=== PATIENT | female | born 1995 | race Caucasian/White ===

== ENCOUNTER 2021-05-07 17:59 | Emergency (ER) | payer MEDICAID ==
--- NOTE | 2021-05-07 20:07 | XR ---
EXAMINATION TYPE: XR foot complete RT DATE OF EXAM: 05/07/2021 COMPARISON: NONE HISTORY: Stepped on a nail. Pain TECHNIQUE: 3 views FINDINGS: Metatarsals are intact. I see no fracture nor dislocation. Joint spaces are normal. There i s no sign of a foreign body. IMPRESSION: No fracture. No sign of a metallic foreign body.
[2021-05-07] MEDS ORDERED: AMOXIC-POT CLAV 875-125MG 1 EACH TAB PO STA (20:35)
--- NOTE | 2021-05-07 20:43 | ED ---
General Adult HPI - General Chief complaint: Extremity Injury, Lower Stated complaint: foot injury Time Seen by Provider: 05/07/21 19:44 Source: patient Mode of arrival: ambulatory Limitations: no limitations - History of Present Illness Initial comments: 26-year-old female presents to the emergency room for stepping on a nail. Patient states she was out by the bar and stepped on a nail. Patient is up-to-date on tetanus in the past year. Patient was wearing a boot.Patient has no other complaints at this time including shortness of breath, chest pain, abdominal pain, nausea or vomiting, headache, or visual changes. - Related Data Previous Rx's Medication Instructions Recorded Amoxicillin/Potassium Clav 1 tab PO Q12HR #14 tab 05/07/21 [Augmentin 875-125 Tablet] Allergies Allergy/AdvReac Type Severity Reaction Status Date / Time No Known Allergies Allergy Verified 05/07/21 18:12 Review of Systems ROS Statement: Those systems with pertinent positive or pertinent negative responses have been documented in the HPI. ROS Other: All systems not noted in ROS Statement are negative. General Exam Limitations: no limitations General appearance: alert, in no apparent distress Head exam: Present: atraumatic Eye exam: Present: normal appearance, PERRL, EOMI. Absent: scleral icterus, conjunctival injection ENT exam: Present: normal exam, mucous membranes moist Neck exam: Present: normal inspection Respiratory exam: Absent: respiratory distress Extremities exam: Present: other (Patient has a small puncture wound noted in the plantar aspect of the right foot however no edema erythema or signs of infection.) Course Vital Signs 05/07/21 18:10 Temperature 97.3 F L Pulse Rate 72 Respiratory 19 Rate Blood Pressure 128/88 O2 Sat by Pulse 98 Oximetry Medical Decision Making - Medical Decision Making Patient will be treated prophylactically with Augmentin. However if she starts to notice signs of infection she will return here and may need a flouroquinolone. However given risks vs benefits with black box warning we will reserve that until she is presenting with signs of infection. She'll keep the area clean and will return for any worsening symptoms. We'll otherwise follow- up with primary care. I discussed this case with attending Dr. mccoy who agrees with this assessment and treatment plan. Disposition Clinical Impression: Puncture wound Disposition: HOME SELF-CARE Condition: Good Instructions (If sedation given, give patient instructions): Puncture Wound (ED) Additional Instructions: Take antibiotic as directed. Keep area clean with gentle soap and water. You can apply antibiotic ointment twice daily. if you notice signs of infection such as increased pain, swelling, fevers, redness return to the emergency room. Follow-up with primary care otherwise. Prescriptions: Amoxicillin/Potassium Clav [Augmentin 875-125 Tablet] 1 tab PO Q12HR #14 tab Is patient prescribed a controlled substance at d/c from ED?: No Referrals: Gilberto Harris MD [Primary Care Provider] - 1-2 days Time of Disposition: 20:35
[2021-05-07 20:51] VITALS: RESP 18
[2021-05-07 20:57] VITALS: BP 131/87; PULSE 74; TEMP 98.2
== END 2021-05-07 20:56 | disposition home or self-care (01) ==
LOC: EC 17:59
DX: S91.331A Puncture wound without foreign body, right foot, initial encounter (principal); W45.0XXA Nail entering through skin, initial encounter
CPT/HCPCS: 99283

== ENCOUNTER → 2021-05-29 | Outpatient (CLI) | payer MEDICAID, OTHER | END | disposition home or self-care (01) | LOC: LABWHC1 10:38 | PROVIDERS: ATTEND Emergency Medicine | DX: Z20.822 Contact with and (suspected) exposure to COVID-19 (principal) | CPT/HCPCS: 87635 ==